=== PATIENT | male | born 2000 | race Caucasian/White ===

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

== ENCOUNTER 2024-09-22 15:19 | Day surgery (SDC) | payer BC ==
[2024-09-22] MEDS: Sodium Chloride 0.9% 1,000 ML IV ONE (15:43)
[2024-09-22 15:44] LABS: BASOPHILS ABSOLUTE AUTO 0.07 K/uL (0.00-0.20); BASOPHILS PERCENT AUTO 0.3 % (0.0-1.0); EOSINOPHILS ABSOLUTE AUTO 0.08 K/uL (0.00-0.45); EOSINOPHILS PERCENT AUTO 0.4 % (0.0-6.0); HEMATOCRIT 47.2 % (42.0-52.0); HEMOGLOBIN 16.3 g/dL (14.0-18.0); IMMATURE GRAN ABSOLUTE AUTO 0.09 K/uL (0.00-0.05); IMMATURE GRAN PERCENT AUTO 0.4 % (0.0-0.4); LYMPHOCYTES ABSOLUTE AUTO 1.66 K/uL (1.00-4.80); LYMPHOCYTES PERCENT AUTO 7.6 % (24.0-44.0); MEAN CORPUSCULAR HEMOGLOBIN 30.4 pg (28.0-32.0); MEAN CORPUSCULAR HGB CONC 34.5 g/dL (32.0-36.0); MEAN CORPUSCULAR VOLUME 87.9 fL (83.0-99.0); MEAN PLATELET VOLUME 11.1 fL (9.4-12.4); MONOCYTES ABSOLUTE AUTO 1.45 K/uL (0.00-0.80); MONOCYTES PERCENT AUTO 6.6 % (0.0-8.0); NEUTROPHILS ABSOLUTE AUTO 18.47 K/uL (1.80-7.70); NEUTROPHILS PERCENT AUTO 84.7 % (41.0-71.0); PLATELET COUNT,PLT 233 K/uL (150-400); RED BLOOD CELL COUNT 5.37 M/uL (4.52-5.90); WHITE BLOOD CELL COUNT,WBC 21.82 K/uL (3.9-11.3)
[2024-09-22 16:06] LABS: A/G RATIO 1.4 (0.9-1.6); ALBUMIN 4.5 g/dL (3.4-5.0); BILIRUBIN TOTAL 1.6 mg/dL (0.2-1.0); CALCIUM 9.3 mg/dL (8.5-10.1); CARBON DIOXIDE,CO2 31.7 mmol/L (21.0-32.0); EST CRCL DRUG DOSING (CG) 109.25 mL/min; POTASSIUM,K 3.6 mmol/L (3.5-5.1); PROTEIN TOTAL,TP 7.8 g/dL (6.4-8.2)
[2024-09-22] MEDS: Ondansetron 4 MG/2 ML SDV IVPUSH ONE (16:07)
[2024-09-22] MEDS: Piperacillin/Tazobactam 3.375 GM in Sodium Chloride 0.9% 100 ML IV ONE (16:07)
[2024-09-22] MEDS: Morphine 4 MG/ML Syringe IVPUSH ONE (16:07)
[2024-09-22] MEDS: Iopamidol 755 MG/ML 500 ML Multipack Bottle IVPUSH STA (16:21)
[2024-09-22 16:33] LABS: APPEARANCE,URINE CLEAR; BILIRUBIN,URINE NEGATIVE (NEGATIVE); COLOR,URINE YELLOW; GLUCOSE,URINE NEGATIVE (NEGATIVE); KETONES,URINE NEGATIVE (NEGATIVE); LEUKOCYTE ESTERASE,URINE NEGATIVE (NEGATIVE); NITRITE,URINE NEGATIVE (NEGATIVE); OCCULT BLOOD,URINE NEGATIVE (NEGATIVE); PH,URINE 6.5 (5.0-8.0); PROTEIN,URINE NEGATIVE (NEGATIVE); UROBILINOGEN,URINE 0.2 EU/dL (<2.0)
[2024-09-22] MEDS ORDERED: dexmedeTOMIDine HCl 200 MCG/2 ML SDV ONE (18:13)
[2024-09-22] MEDS ORDERED: Dexamethasone 4 MG/ML 5 ML MDV ONE (18:13)
[2024-09-22] MEDS ORDERED: Rocuronium Bromide 50 MG/5 ML Syringe ONE (18:13)
[2024-09-22] MEDS ORDERED: Ondansetron 4 MG/2 ML SDV ONE (18:13)
[2024-09-22] MEDS ORDERED: fentaNYL 250 MCG/5 ML SDV ONE (18:13)
[2024-09-22] MEDS ORDERED: Succinylcholine/Sod PF 100 MG/5 ML SYRINGE IV ONE (18:13)
[2024-09-22] MEDS ORDERED: Propofol 200 MG/20 ML SDV ONE (18:13)
[2024-09-22] MEDS ORDERED: Bupivacaine 0.5% 30 ML SDV ONE (18:14)
[2024-09-22] MEDS ORDERED: Ropivacaine 0.5% 5 MG/ML 30 ML SDV ONE (18:14)
[2024-09-22] MEDS ORDERED: Sodium Chloride 0.9% 20 ML ONE (18:15)
[2024-09-22] MEDS ORDERED: Lidocaine 2% 11 ML Jelly Filled Syringe ONE (18:46)
[2024-09-22] MEDS ORDERED: Ketorolac 30 MG/ML SDV ONE (19:25)
[2024-09-22] MEDS ORDERED: Sugammadex Sodium 200 MG/2 ML VIAL IV ONE (19:37)
[2024-09-22] MEDS ORDERED: Acetaminophen 325 MG Tab PO PRN (20:18)
[2024-09-22] MEDS ORDERED: Naloxone 0.4 MG/ML SDV IVPUSH PRN (20:18)
[2024-09-22] MEDS ORDERED: HYDROmorphone 2 MG/ML Syringe IVPUSH PRN (20:18)
[2024-09-22] MEDS: Sodium Chloride 0.9% 1,000 ML IV SCH (21:18)
[2024-09-22] MEDS: Acetaminophen/HYDROcodone 325-5 MG Tab PO PRN (21:43)
[2024-09-22] MEDS: Ondansetron 4 MG/2 ML SDV IVPUSH PRN (21:44)
[2024-09-22] MEDS: Piperacillin/Tazobactam 3.375 GM in Sodium Chloride 0.9% 100 ML IV SCH ×2 (22:14→23:22)
== END 2024-09-23 10:15 | disposition home or self-care (01) ==
LOC: MW.ED 15:19 → MW.SDS 17:59 → MW.MS 20:06 → MW.SDS 09-23 10:15
PROVIDERS: ATTEND Surgery
DX: K35.33 Acute appendicitis with perforation, localized peritonitis, and gangrene, with abscess (principal)
CPT/HCPCS: 36415; 44970; 74177; 80053; 81003; 83690; 85025; 96365; 99285; A9270; J0665; J1100; J1885; J2405; J2543; J2704; J2795; J3010; J7030; Q9967; 00840; 64450; 99283; J3490